=== PATIENT | female | born 1995 | race Two or more races ===

== ENCOUNTER → 2024-04-23 | Outpatient (CLI) | payer BC ==
[2024-04-23 09:22] LABS: Basophils # (auto) 0 10 ^3/uL (0-0.2); Basophils % (auto) 0.4 % (0.0-2.0); Eosinophils # (auto) 0.1 10 ^3/uL (0-0.8); Eosinophils % (auto) 1.1 % (0.0-7.0); Hematocrit 39.5 % (36.0-46.0); Hemoglobin 13.4 g/dL (12.2-16.2); Lymphocytes # (auto) 1.6 10 ^3/uL (0.4-5.4); Lymphocytes % (auto) 23.4 % (10.0-50.0); Mean Corpuscular Hemoglobin 29.6 pg (28.0-32.0); Mean Corpuscular Hgb Conc. 33.9 g/dL (32.0-36.0); Mean Corpuscular Volume 87.5 fL (80.0-100.0); Monocytes # (auto) 0.4 10 ^3/uL (0-1.3); Monocytes % (auto) 6.1 % (0.0-12.0); Neutrophils # (auto) 4.6 10 ^3/uL (1.6-8.6); Platelet Count (auto) 235 10^3/uL (140-450); Red Blood Cells 4.52 10^6/uL (4.0-5.20); Red Cell Distribution Width 13.4 % (11.8-14.3); White Blood Cell 6.7 10^3/uL (4.4-10.8)
[2024-04-23 11:05] LABS: Amphetamine Screen, Urine Neg (NEGATIVE); Barbiturate Scree,Urine Neg (NEGATIVE); Benzodiazephine Screen, Urine Neg (NEGATIVE); Cannabinoid Screen, Urine Neg (NEGATIVE); Cocaine Screen, Urine Neg (NEGATIVE); Opiate Scree,Urine Neg (NEGATIVE); Phencyclidine Screen, Urine Neg (NEGATIVE)
[2024-04-24 12:06] LABS: RPR Non Reactive (Non Reactive)
[2024-04-24 20:06] LABS: Chlamydia Trachomatis, NAA Negative (Negative); Neisseria gonorrhoeae, NAA Negative (Negative)
== END | disposition home or self-care (01) ==
LOC: LAB 08:42
PROVIDERS: ATTEND Obstetrics & Gynecology
DX: Z31.430 Encounter of female for testing for genetic disease carrier status for procreative management (principal); Z34.00 Encounter for supervision of normal first pregnancy, unspecified trimester; N39.0 Urinary tract infection, site not specified; Z20.01 Contact with and (suspected) exposure to intestinal infectious diseases due to Escherichia coli (E. coli)
CPT/HCPCS: 36415; 80307; 83036; 84144; 84702; 85025; 86592; 86703; 86762; 86850; 86900; 86901; 87086; 87340

== ENCOUNTER → 2024-08-11 | Outpatient (CLI) | payer BC | END | disposition home or self-care (01) | LOC: LAB 09:08 | PROVIDERS: ATTEND Obstetrics & Gynecology | DX: Z34.00 Encounter for supervision of normal first pregnancy, unspecified trimester (principal); Z3A.00 Weeks of gestation of pregnancy not specified | CPT/HCPCS: 36415; 82951; 83036 ==

== ENCOUNTER 2024-10-05 08:39 | Outpatient (CLI) | payer BC ==
[2024-10-05 09:10] LABS: Basophils # (auto) 0 10 ^3/uL (0-0.2); Basophils % (auto) 0.8 % (0.0-2.0); Eosinophils # (auto) 0 10 ^3/uL (0-0.8); Eosinophils % (auto) 0.7 % (0.0-7.0); Hemoglobin 12.3 g/dL (12.2-16.2); Lymphocytes # (auto) 1.5 10 ^3/uL (0.4-5.4); Lymphocytes % (auto) 24.7 % (10.0-50.0); Mean Corpuscular Hemoglobin 28.3 pg (28.0-32.0); Mean Corpuscular Hgb Conc. 33.3 g/dL (32.0-36.0); Mean Corpuscular Volume 84.9 fL (80.0-100.0); Monocytes # (auto) 0.5 10 ^3/uL (0-1.3); Monocytes % (auto) 8.2 % (0.0-12.0); Neutrophils # (auto) 4.1 10 ^3/uL (1.6-8.6); Neutrophils % (auto) 65.6 % (37.0-80.0); Nucleated Red Blood Cells % 0.1 %; Platelet Count (auto) 225 10^3/uL (140-450); Red Blood Cells 4.36 10^6/uL (4.0-5.20); Red Cell Distribution Width 13.9 % (11.8-14.3); White Blood Cell 6.2 10^3/uL (4.4-10.8)
[2024-10-07 01:07] LABS: Chlamydia Trachomatis, NAA Negative (Negative); Neisseria gonorrhoeae, NAA Negative (Negative)
[2024-10-08 14:06] LABS: Treponema Pallidum Ab LC Non Reactive (Non Reactive)
== END 2024-10-05 17:00 | disposition home or self-care (01) ==
LOC: LAB 08:39
PROVIDERS: ATTEND Obstetrics & Gynecology
DX: Z34.80 Encounter for supervision of other normal pregnancy, unspecified trimester (principal); Z3A.00 Weeks of gestation of pregnancy not specified; Z72.51 High risk heterosexual behavior
CPT/HCPCS: 36415; 85025; 86780

== ENCOUNTER 2024-11-05 05:43 | Observation (INO) | payer BC ==
[2024-11-05] MEDS ORDERED: PREN-96 PO (14:01)
--- NOTE | 2024-11-05 15:20 | DVHDS2 ---
Physician Discharge Progress N Final Diagnosis: postdates 40wks Operations or Procedures: Operations or Procedures nst reviewed reactive,sono Other Interventions Other Interventions refuses induction jessica is low normal but pt doesnt want to get induced understands risks and compl of low jessica possib of iufd ,advised pt to return tmw for jessica check Condition on Discharge: Good Disposition: Home Discharge Instructions: Activity: No Restrictions, As Tolerated Medications: na Follow Up Care: Specialist: 1d Discharge Statement: "Patient was advised to return to the ER or call 911 if any headaches, dizziness, shortness of breath, chest pain, abdominal pain, bleeding, fevers, or worsening of medical condition. Patient was counseled about treatment plan, medications, possible side effects, patientverbalized understanding. All questions were answered to the best of my ability. This discharge took greater then 30 minutes in planning, reviewing documentation, counseling the patient, and discussing with other team members." Visit Coding OBGYN Date of Service: Nov 05, 2024 Billing Provider: PEACE HOWARD DO CHAIN CARRIER Common Visit Codes: [id number] OBS CARE (HIGH) CHAIN CARRIER Procedure Codes: 06278-41- NON-STRESS TEST PEACE HOWARD DO Nov 05, 2024 15:20
--- NOTE | 2024-11-05 16:35 | DVH ---
BIOPHYSICAL PROFILE HISTORY: Term Gestation TECHNIQUE: Multiple transabdominal real-time grayscale sonographic images through the gravid uterus of the fetus with duplex Doppler color flow and M-mode spectral analysis FINDINGS: BIOPHYSICAL PROFILE: breathing score: 2 movement score: 2 tone score: 2 Quantitative BRENDA score: 2 (BRENDA: 7.1 Cm.) Total score: 8 The cervix is not well-visualized Single live fetus in cephalic presentation. heart rate 150 beats per minute. Grade 3 anterior placenta without previa or abruption IMPRESSION: Biophysical profile score: 8
== END 2024-11-05 15:38 | disposition home or self-care (01) ==
LOC: LDRP 13:55
PROVIDERS: ADMIT Obstetrics & Gynecology; ATTEND Obstetrics & Gynecology
DX: O48.0 Post-term pregnancy (principal); Z3A.40 40 weeks gestation of pregnancy; Z79.899 Other long term (current) drug therapy
CPT/HCPCS: 76818; 81002; 94760; G0378; 59025; 76819

== ENCOUNTER 2024-11-06 08:59 | Observation (INO) | payer BC ==
[~2024-11-06 08:59] MED LIST: PREN-96 PO
--- NOTE | 2024-11-06 13:32 | DVHDS2 ---
Physician Discharge Progress N Final Diagnosis: IUP 40+ wk, encounter for NST/BERNDA Operations or Procedures: Operations or Procedures NST/BPP BRENDA ok NOT in labor Condition on Discharge: Stable Disposition: Home Discharge Instructions: Diet: Regular Activity: Light activity Follow Up/Referral: as scheduled Delivery plan per Dr Vallejo Medications: na Follow Up Care: Discharge Statement: "Patient was advised to return to the ER or call 911 if any headaches, dizziness, shortness of breath, chest pain, abdominal pain, bleeding, fevers, or worsening of medical condition. Patient was counseled about treatment plan, medications, possible side effects, patientverbalized understanding. All questions were answered to the best of my ability. This discharge took greater then 30 minutes in planning, reviewing documentation, counseling the patient, and discussing with other team members." Visit Coding OBGYN Date of Service: Nov 06, 2024 Billing Provider: ROMAN DALEY DO ROADMASTER Common Visit Codes: 00502-OES/OBS SAME DATE (MOD) ROMAN DALEY DO Nov 06, 2024 13:32
--- NOTE | 2024-11-06 13:42 | DVH ---
Limited Ob ultrasound HISTORY: BRENDA CHECK TECHNIQUE: Multiple transabdominal real-time grayscale sonographic images through the gravid uterus of the fetus with duplex Doppler color flow and M-mode spectral analysis FINDINGS: Single intrauterine fetus with cephalic presentation. heart rate 147 beats per minute. Anterior grade 3 placenta without previa or abruption BRENDA 9 cm IMPRESSION: 1. The BRENDA is currently 9 cm
== END 2024-11-06 14:01 | disposition home or self-care (01) ==
LOC: LDRP 12:35
PROVIDERS: ADMIT Obstetrics & Gynecology; ATTEND Obstetrics & Gynecology
DX: O48.0 Post-term pregnancy (principal); Z98.890 Other specified postprocedural states; Z79.899 Other long term (current) drug therapy; Z3A.40 40 weeks gestation of pregnancy
CPT/HCPCS: 59025; 76815; 81002; 94760; G0378

== ENCOUNTER 2024-11-07 00:15 | Observation (INO) | payer BC ==
--- NOTE | 2024-11-07 09:00 | DVHDS2 ---
Physician Discharge Progress N Final Diagnosis: Term IUP 40+ wk, encounter for Antepartum testing Operations or Procedures: Operations or Procedures NST/BPP/BRENDA BRENDA 7.8cm MVP > 3cm (normal fluid) NST reactive NOT in labor Condition on Discharge: Stable Disposition: Home Discharge Instructions: Diet: Regular Activity: No Restrictions, As Tolerated Follow Up/Referral: as scheduled Medications: N/a Follow Up Care: Discharge Statement: "Patient was advised to return to the ER or call 911 if any headaches, dizziness, shortness of breath, chest pain, abdominal pain, bleeding, fevers, or worsening of medical condition. Patient was counseled about treatment plan, medications, possible side effects, patientverbalized understanding. All questions were answered to the best of my ability. This discharge took greater then 30 minutes in planning, reviewing documentation, counseling the patient, and discussing with other team members." Visit Coding OBGYN Date of Service: Nov 07, 2024 Billing Provider: ROMAN DALEY DO CATH LABORATORY TECHNICIAN Common Visit Codes: 80146-FWJ/OBS SAME DATE (MOD) ROMAN DALEY DO Nov 07, 2024 09:00
--- NOTE | 2024-11-07 09:00 | DVH ---
BIOPHYSICAL PROFILE HISTORY: term TECHNIQUE: Multiple transabdominal real-time grayscale sonographic images through the gravid uterus o f the fetus with duplex doppler color flow and M-mode spectral analysis FINDINGS: BIOPHYSICAL PROFILE: breathing score: 2 movement score: 2 tone score: 2 Quantitative BRENDA score: 2 (BRENDA: 7.8 cm.) Total score: 8/8 Single live fetus in cephalic presentation. heart rate 137 beats per minute. Anterior placenta without previa or abruption Biophysical profile score 8/8 corresponding to an ELIESER of 11/05/24 IMPRESSION: Biophysical profile score: 8/8
== END 2024-11-07 09:12 | disposition home or self-care (01) ==
LOC: LDRP 07:52
PROVIDERS: ADMIT Obstetrics & Gynecology; ATTEND Obstetrics & Gynecology
DX: O48.0 Post-term pregnancy (principal); Z3A.40 40 weeks gestation of pregnancy; Z79.899 Other long term (current) drug therapy
CPT/HCPCS: 76818; 81002; G0378; 59025; 76819

== ENCOUNTER 2024-11-09 00:57 | Observation (INO) | payer BC ==
--- NOTE | 2024-11-09 15:49 | DVH ---
BIOPHYSICAL PROFILE HISTORY: Term Gestation TECHNIQUE: Multiple transabdominal real-time grayscale sonographic images through the gravid uterus o f the fetus with duplex doppler color flow and M-mode spectral analysis FINDINGS: BIOPHYSICAL PROFILE: breathing score: 2 movement score: 2 tone score: 2 Quantitative BRENDA score: 2 (BRENDA: 7.1 cm.) Total score: 8/8 Single live fetus in cephalic presentation. heart rate 142 beats per minute. Anterior placenta without previa or abruption Biophysical profile score 8/8 corresponding to an ELIESER of 11/05/24 IMPRESSION: Biophysical profile score: 8/8
--- NOTE | 2024-11-09 18:24 | DVHDS2 ---
Physician Discharge Progress N Final Diagnosis: testing for term Operations or Procedures: Operations or Procedures 29yo IUP@40.4wks, +FM, denies UCs/LOF/VB/SOLORIO/vision changes/RUQ pain. Pt requesting membrane sweep. VSS NST reactive SVE: FT/0/-3, unable to do membrane sweep FKC/PreE/labor precautions reviewed Pt declined IOL today. Dr. Vallejo scheduled her IOL for 11/13/24. Plan to f/u in 2 days for NST/BPP. Other Interventions Other Interventions [place] [address] Ph: [phone] DIAGNOSTIC IMAGING Diagnostic Imaging Report : [id number] Signed PATIENT: TRANG TRACY ACCT: [id number] UNIT: [id number] : 1995 LOC: [facility] ROOM / BED: TRIAGE1 / A AGE / SEX: 29 / F ADM STATUS: ADM IN SERVICE 1508 ORDERING PHYSICIAN: ENOCH FIGUEROA CNM PROCEDURE(s): BPP - BIOPHYSICAL PROFILE REASON: Term Gestation ORDER NUMBER(s): [id number], ACCESSION NUMBER(s): [id number] BIOPHYSICAL PROFILE HISTORY: Term Gestation TECHNIQUE: Multiple transabdominal real-time grayscale sonographic images through the gravid uterus of the fetus with duplex doppler color flow and M-mode spectral analysis FINDINGS: BIOPHYSICAL PROFILE: breathing score: 2 movement score: 2 tone score: 2 Quantitative BRENDA score: 2 (BRENDA: 7.1 cm.) Total score: 8/8 Single live fetus in cephalic presentation. heart rate 142 beats per minute. Anterior placenta without previa or abruption Biophysical profile score 8/8 corresponding to an ELIESER of 11/05/24 IMPRESSION: Biophysical profile score: 8/8 ATED BY: TOMER ELLIS MD DICTATED DATE/TIME: 11/09/241546 SIGNED BY: TOMER ELLIS MD SIGNED DATE/TIME: 11/09/241546 CC: Condition on Discharge: Stable Disposition: Home Discharge Instructions: Diet: Regular Activity: No Restrictions, As Tolerated Follow Up/Referral: as scheduled. Medications: see med list Follow Up Care: Specialist: f/u in 2 days Discharge Statement: "Patient was advised to return to the ER or call 911 if any headaches, dizziness, shortness of breath, chest pain, abdominal pain, bleeding, fevers, or worsening of medical condition. Patient was counseled about treatment plan, medications, possible side effects, patientverbalized understanding. All questions were answered to the best of my ability. This discharge took greater then 30 minutes in planning, reviewing documentation, counseling the patient, and discussing with other team members." Visit Coding OBGYN Date of Service: Nov 09, 2024 Billing Provider: ENOCH FIGUEROA CNM MITERING MACHINE OPERATOR Common Visit Codes: [id number] OBS CARE (HIGH) MITERING MACHINE OPERATOR Procedure Codes: 85437-66- NON-STRESS TEST ENOCH FIGUEROA CNM Nov 09, 2024 18:23
== END 2024-11-09 16:54 | disposition home or self-care (01) ==
LOC: LDRP 14:50 → UNDOADMOB 14:50 → LDRP 15:09 → UNDODISOB 16:54
PROVIDERS: ADMIT Obstetrics & Gynecology; ATTEND Obstetrics & Gynecology
DX: O48.0 Post-term pregnancy (principal); Z98.890 Other specified postprocedural states; Z79.899 Other long term (current) drug therapy; Z3A.40 40 weeks gestation of pregnancy
CPT/HCPCS: 76818; 81002; 94760; G0378; 59025; 76819

== ENCOUNTER 2024-11-11 06:14 | Observation (INO) | payer BC ==
--- NOTE | 2024-11-11 14:29 | DVH ---
OB ULTRASOUND, LIMITED CLINICAL INDICATION: Post term TECHNIQUE: Multiple grayscale ultrasound and M-mode images were obtained of the pelvis for evaluation of intrauterine . COMPARISON: US BIOPHYSICAL PROFILE on DOS: 11/09/24, US BIOPHYSICAL PROFILE on DOS: 11/07/24, US OBSTER ICAL LIMITED on DOS: 11/06/24 FINDINGS: A single living fetus is seen in cephalic presentation. Biophysical profile: 11/19 breathin movements: 2 tone: 2 Amniotic fluid volume: 2 Placenta: Anterior, grade 3. Amniotic fluid: Slightly low. BRENDA 7.4 cm heart rate: 153 beats/min. A complete anatomic survey was not performed on this exam. IMPRESSION: Biophysical profile: 11/19
--- NOTE | 2024-11-12 08:22 | DVHDS2 ---
Physician Discharge Progress N Final Diagnosis: post dates 40wks Operations or Procedures: Operations or Procedures nst reactive reviwed,sono Consultations: Consultations refuses induction Condition on Discharge: Good Disposition: Home Discharge Instructions: Diet: Regular Activity: No Restrictions, As Tolerated Medications: na Follow Up Care: Specialist: 2d Discharge Statement: "Patient was advised to return to the ER or call 911 if any headaches, dizziness, shortness of breath, chest pain, abdominal pain, bleeding, fevers, or worsening of medical condition. Patient was counseled about treatment plan, medications, possible side effects, patientverbalized understanding. All questions were answered to the best of my ability. This discharge took greater then 30 minutes in planning, reviewing documentation, counseling the patient, and discussing with other team members." Visit Coding OBGYN Date of Service: Nov 11, 2024 Billing Provider: PEACE HOWARD DO VULCAN CREWMEMBER Common Visit Codes: [id number] OBS CARE (HIGH) VULCAN CREWMEMBER Procedure Codes: 57283-83- NON-STRESS TEST PEACE HOWARD DO Nov 12, 2024 08:22
== END 2024-11-11 14:13 | disposition home or self-care (01) ==
LOC: LDRP 12:36 → UNDOADMOB 12:36 → LDRP 13:00
PROVIDERS: ADMIT Obstetrics & Gynecology; ATTEND Obstetrics & Gynecology
DX: O48.0 Post-term pregnancy (principal); Z3A.40 40 weeks gestation of pregnancy; Z79.899 Other long term (current) drug therapy
CPT/HCPCS: 76818; 81002; 94760; G0378; 59025; 76819

== ENCOUNTER 2024-11-13 08:04 | Inpatient (IN) | payer BC ==
[~2024-11-13] VITALS: Ht 162.6 cm; Wt 68.0 kg
[2024-11-13] MEDS ORDERED: NALBUPHINE HCL 10 MG/1ml INJECTION IV PRN (08:30)
[2024-11-13 08:50] LABS: Hematocrit 36.2 % (36.0-46.0); Hemoglobin 12.1 g/dL (12.2-16.2); Mean Corpuscular Hemoglobin 28.7 pg (28.0-32.0); Mean Corpuscular Volume 85.9 fL (80.0-100.0); Nucleated Red Blood Cells % 0.0 %
[2024-11-13 08:58] LABS: Urine Protein, UAD Negative (Negative)
[2024-11-13 09:07] LABS: INR 0.92 (0.9-1.15); Partial Thromboplastin Time 27.9 SEC (24.5-34.5); Prothrombin Time 9.8 sec (9.3-11.8)
[2024-11-13 09:16] LABS: Alanine Aminotransferase 18 U/L (7-40); Albumin 3.7 g/dL (3.2-4.8); Anion Gap 11 (5-15); BUN/Creatinine Ratio 9.9 (10.0-20.0); Calcium 9.0 mg/dL (8.7-10.4); Carbon Dioxide 21 mmol/L (20-31); Chloride 107 mmol/L (98-107); Glucose 101 mg/dL (74-106); Potassium 3.7 mmol/L (3.5-5.1); Sodium 139 mmol/L (136-145); Total Protein 6.0 g/dL (5.7-8.2)
[2024-11-13 09:17] LABS: Alkaline Phosphatase 186 U/L (46-116); Amphetamine Screen, Urine Neg (NEGATIVE); Barbiturate Scree,Urine Neg (NEGATIVE); Benzodiazephine Screen, Urine Neg (NEGATIVE); Bilirubin, Total 0.3 mg/dL (0.2-1.0); Blood Urea Nitrogen 8 mg/dL (9-23); Cannabinoid Screen, Urine Neg (NEGATIVE); Cocaine Screen, Urine Neg (NEGATIVE); Opiate Scree,Urine Neg (NEGATIVE); Phencyclidine Screen, Urine Neg (NEGATIVE)
--- NOTE | 2024-11-13 10:21 | DVH ---
LIMITED OB ULTRASOUND > 14 WKS: HISTORY: weight TECHNIQUE: Multiple real-time grayscale images of the gravid uterus with duplex Doppler color flow an d M-mode spectral analysis. FINDINGS: IUP single live fetus at 38 weeks 6 days based on composite averages of the BPD, head circumference, abdominal circumference and femur length. Measurements are as follows: BPD: 9.3 cm, 38 weeks 0 days Head circumference: 33.3 cm, 38 weeks 0 days AC: 37.5 cm, 41 weeks 3 days Femur length: 7.5 cm, 38 weeks 1 day Estimated weight 3929 grams heart rate 136 beats per minute BRENDA 6.3 cm Cervix not visualized Cephalic Presentation Anterior Placenta without previa or abruption. IMPRESSION: 1. IUP single live fetus at 38 weeks 6 days AUA corresponding to an ELIESER of 11/21/2024
[2024-11-13] MEDS: LACTATED RINGER'S 1,000 ML IV SCH (10:36)
[2024-11-13] MEDS: WITCH HAZEL-GLYCERIN PAD TOP PRN (10:36)
[2024-11-13] MEDS: DERMOPLAST 60ML BOTTLE TOP PRN (10:36)
[2024-11-13] MEDS: PHISODERM TOP SOLN 240ML BTL TOP PRN (10:37)
[2024-11-13] MEDS: LACT. RINGERS/OXYTOCIN 20UNITS 1,000 ML IV SCH (17:49)
[2024-11-13] MEDS ORDERED: CARBOPROST TROMETHAMINE 250 MCG/1ML VIAL IM PRN (18:15)
[2024-11-13] MEDS: ONDANSETRON HCL 4 MG/2 ML VIAL IV PRN (18:32)
[2024-11-13] MEDS: LIDOCAINE 2%HCL (LOCAL ANESTH.) INJ 20ML MDV ONE (20:59)
[2024-11-13] MEDS: LACT. RINGERS/OXYTOCIN 20UNITS 500 ML IV ONE ×2 (21:15)
[2024-11-13] MEDS: LIDOCAINE 2%HCL (LOCAL ANESTH.) INJ 20ML MDV IJ PRN ×2 (21:16→21:46)
--- NOTE | 2024-11-13 21:26 | DVHHP2 ---
OB CC & HPI Date Date of Admission: Nov 13, 2024 Patient Identification: : 1 Para: 0 EDC: Dec 06, 2024 EGA: 41+ Chief Complaints: Reason for admission: induction of labor (post dates) Indication for induction: post dates Other reason for admission: same Admission Nurse Assessment Rev: Yes History of Present Complaints some pnc Past Medical History Cardiac: No pertinent Hx Pulmonary: No pertinent Hx Central Nervous System: No pertinent Hx GI: No pertinent Hx Hemotology/Oncology: No pertinent Hx Hepatobiliary: No pertinent Hx Psychiatric: No pertinent Hx Musculoskeletal: No pertinent Hx Rheumotologic: No pertinent Hx Infectious Disease: No peritnent Hx ENT: No pertinent Hx Renal/: No pertinent Hx Endocrine: No pertinent Hx Dermatology: No pertinent Hx Past Surgical History: No pertinent Hx OB History OB History Care: Good Care Ultrasounds: Normal mid trimester US Obstetrical Complications: None Medical Complications: None Allergies: Coded Allergies: NO KNOWN ALLERGIES (Unverified , 11/13/24) Home Meds Reported Medications Vit W/ Ferrous Fumara ( One Daily) Daily Tab, 1 TAB PO DAILY, #90 TAB 3 Refills 11/05/24 Current Medications Current Medications Medications (Trade) Dose Ordered Sig/Shanna Route PRN Reason Start Time Stop Time Status Last Admin Lactated Ringer's 1,000 ml @ 125 mls/hr Q8H IV 11/13/24 08:30 11/13/24 10:36 Nalbuphine HCl (Nubain) 10 mg Q4HP PRN IV MODERATE PAIN (4-6 PAIN SCALE) 11/13/24 08:30 Witch Inez (Tucks) 1 pad PRN PRN TOP PERINEAL AREA DISCOMFORT 11/13/24 08:30 11/13/24 10:36 Sodium Lauryl Sulfate (Phisoderm) 240 ml PRN PRN TOP PERINEAL AREA DISCOMFORT 11/13/24 08:30 11/13/24 10:37 Benzocaine (Dermoplast) 1 applic PRN PRN TOP PERINEAL AREA DISCOMFORT 11/13/24 08:30 11/13/24 10:36 Lidocaine HCl (Xylocaine) 20 ml ONCE PRN IJ PERINEAL AREA DISCOMFORT 11/13/24 08:30 Ondansetron HCl (Zofran) 4 mg Q4HPRN PRN IV NAUSEA / VOMITING 11/13/24 09:30 82/25 18:32 Misoprostol (Cytotec) 50 mcg Q4HPRN PRN PO CERVICAL RIPENING 11/13/24 09:45 11/13/24 10:45 Oxytocin 1,000 ml @ 6 ml/hr Q24H IV 11/13/24 15:15 11/13/24 17:49 Carboprost Tromethamine (Hemabate) 250 mcg Q20M PRN IM POST HEMORRHAGE 11/13/24 18:15 11/13/24 18:36 DC Methylergonovine Maleate (Methergine) 0.2 mg Q8HP PRN IM POST HEMORRHAGE 11/13/24 18:15 11/15/24 18:14 Misoprostol (Cytotec) 200 mcg ONCE PRN [place] BLEED/HEMORRHAGE 11/13/24 18:15 Misoprostol (Cytotec) 600 mcg ONCE PRN [place] BLEED/HEMORRHAGE 11/13/24 18:15 Diphenoxylate HCl/ Atropine (Lomotil Tablet) 5 mg Q12HR PO 11/13/24 22:00 Family & Social History Family/Social History Blood Type: A+ Rubella: immune RPR/VDRL: Negative GBS Status: Negative HBsAG: Negative Review of Systems Constitutional: No symptom reported Ears, Nose, & Throat: No symptom reported Eyes: No symptom reported Pulmonary/Respiratory: No symptom reported Cardiovascular: No symptom reported Gastrointestinal: No symptom reported Genitourinary: No symptom reported Musculoskeletal: No symptom reported Skin: No symptom reported Psychiatric: No symptom reported Endocrine: No symptom reported Hemotologic/Lymphatic: No symptom reported OB Admission Exam Physical Exam HEENT: TMs Normal, Fontanelles Normal, Nasal Mucosa Normal, Eyes non-injected, Oropharynx Normal, PERRLA, Moist Membranes, EOMI Heart: Rhythm Normal Lungs: Clear Abdomen: Non tender Extremities: Normal Reflexes: Normal Cervical Dilatation: 1cm Effacement: 50% Station: -3 Membranes: Intact Amniotic Fluid: Clear Heart Rate: 130's Accelerations: Accelerations Present Decelerations: No Decelerations Short Term Variability: Present Occupational Therapy Supervisor Variability: Average (6-25) Contractions on Admission: 6-10 Minutes Apart Intensity: Mild OB Plan Plan Admitting Diagnosis: induction of labor Post date Plan: Induction (Cytotec) YOSELIN GARCIA DO Nov 13, 2024 21:26
--- NOTE | 2024-11-13 21:31 | LDN2 ---
Labor and Delivery Note Date 11/13/24 Age 29 1 Para 0 AB 0 EDC 11/05/2024 EGA 41+ Diagnosis post date induction Vaginal Delivery: VTX Vacuum Assisted: No Placenta: Spontaneous Sex: Female Weight pnd Apgars 8/9 Nuchal Cord Transected: Yes (loose x1 ) Amniotic Fluid: Clear Anesthesia none Episiotomy: No Extension: Yes (2nd degee midline posterior vag/ perineal , rectal exam intact great tone, 1st degree bilateral anterior vaginal) Labs Laboratory Tests 04/23/24 08:55: Hepatitis B Surface Antigen Negative, HIV (1&2) Antibody Negative, Rubella Antibody Positive Blood Bank 11/13/24 08:25: Blood Type A POSITIVE Complications none Conditions stable Home Assessment Nurse none needed or present Visit Coding OBGYN Date of Service: Nov 13, 2024 Billing Provider: YOSELIN GARCIA DO SALESPERSON [employer]IAL [employer]OTS Common Visit Codes: 75754-ZQR/OBS SAME DATE (HIGH) SALESPERSON B[employer]IAL PLOTS Procedure Codes: 76559-YQK DEL INCLUDING YOSELIN GARCIA DO Nov 13, 2024 21:31
[2024-11-13] MEDS: DIPHENOXYLATE W/ATROPINE 2.5 MG TAB PO SCH (22:00)
[2024-11-13] MEDS: IBUPROFEN 600 MG TAB PO PRN (22:41)
[2024-11-13 23:30] VITALS: BP 113/66; PULSE 90; RESP 18; TEMP 98.3; O2SAT 98
[2024-11-14] MEDS: METHYLERGONOVINE MALEATE 0.2 MG/ML AMP IM PRN (01:24)
[2024-11-14 02:51] VITALS: BP 106/62; PULSE 86; RESP 18; TEMP 98.3; O2SAT 98
[2024-11-14 07:00] VITALS: BP 101/62; PULSE 72; RESP 18; TEMP 98.1; O2SAT 97
[2024-11-14 11:00] VITALS: BP 101/65; PULSE 80; RESP 15; TEMP 97.9; O2SAT 98
[2024-11-14 15:20] VITALS: BP 122/73; PULSE 86; RESP 16; TEMP 98.8; O2SAT 98
[2024-11-14 18:34] VITALS: BP 110/67; PULSE 81; RESP 18; TEMP 98.2; O2SAT 98
[2024-11-14] MEDS: DOCUSATE SOD 100 MG CAP PO SCH (21:27)
[2024-11-14] MEDS: ACETAMINOPHEN 325 MG TAB PO PRN (21:28)
[2024-11-14 23:30] VITALS: BP 106/62; PULSE 86; RESP 18; TEMP 98.1; O2SAT 98
[2024-11-15 03:10] VITALS: BP 112/64; PULSE 74; RESP 18; TEMP 98.2; O2SAT 98
[2024-11-15 06:30] VITALS: BP 97/59; PULSE 78; RESP 16; TEMP 98.2; O2SAT 97
--- NOTE | 2024-11-16 05:54 | DVHPN2 ---
Chief Complaints Patient reports: No new complaints (Retrospective note 11/14/2024), Feels better Nursing reports: No new complaints, No abdominal pain, No chest pain, No dizziness, No cough Objective Vitals Vital Signs Date Time Temp Pulse Resp B/P (MAP) Pulse Ox O2 Delivery O2 Flow Rate FiO2 11/15/24 06:30 98.2 78 16 97/59 (72) 97 98.2 11/15/24 06:30 Room Air Medications none Comment minimal lochia General: Normal ENT: Normal Neck: Normal Lungs: Normal Cardiovascular: Normal Abdominal: Normal Musculoskeletal: Normal Extremities: Normal Skin: Normal Neurological: Normal Studies Laboratory Tests 11/13/24 08:25 Test 11/13/24 08:25 Range/Units Serum Glucose 101 74-106 mg/dL Ass/Plan Assessment PPD #1 stable improved Plan advance care YOSELIN GARCIA DO Nov 16, 2024 05:54
--- NOTE | 2024-11-16 05:57 | DVHDS2 ---
Discharge Summary Date of Admission Nov 13, 2024 at 08:04 Date of Discharge: Nov 15, 2024 Admitting Diagnosis induction Wounds: 2nd posterior Labs/Diagnostic Data: Laboratory Results Test 11/13/24 08:25 White Blood Count 7.0 10^3/uL (4.4-10.8) Red Blood Count 4.21 10^6/uL (4.0-5.20) Hemoglobin 12.1 g/dL (12.2-16.2) Hematocrit 36.2 % (36.0-46.0) Mean Corpuscular Volume 85.9 fL (80.0-100.0) Mean Corpuscular Hemoglobin 28.7 pg (28.0-32.0) Mean Corpuscular Hemoglobin Concent 33.4 g/dL (32.0-36.0) Red Cell Distribution Width 16.0 % (11.8-14.3) Platelet Count 186 10^3/uL (140-450) Mean Platelet Volume 8.3 fL (6.9-10.8) Neutrophils (%) (Auto) 66.6 % (37.0-80.0) Lymphocytes (%) (Auto) 25.1 % (10.0-50.0) Monocytes (%) (Auto) 7.1 % (0.0-12.0) Eosinophils (%) (Auto) 0.7 % (0.0-7.0) Basophils (%) (Auto) 0.5 % (0.0-2.0) Neutrophils # (Auto) 4.6 10 ^3/uL (1.6-8.6) Lymphocytes # (Auto) 1.7 10 ^3/uL (0.4-5.4) Monocytes # (Auto) 0.5 10 ^3/uL (0-1.3) Eosinophils # (Auto) 0 10 ^3/uL (0-0.8) Basophils # (Auto) 0 10 ^3/uL (0-0.2) Nucleated Red Blood Cells 0.0 % Prothrombin Time 9.8 sec (9.3-11.8) Prothrombin Time INR 0.92 (0.9-1.15) Activated Partial Thromboplast Time 27.9 SEC (24.5-34.5) Urine Color Light-yellow (Yellow) Urine Clarity Clear (Clear) Urine pH 7.0 (5.0-9.0) Urine Specific [place] 1.013 (1.001-1.035) Urine Protein Negative (Negative) Urine Ketones Negative (Negative) Urine Blood Negative /uL (Negative) Urine Nitrite Negative (Negative) Urine Bilirubin Negative (Negative) Urine Urobilinogen Normal mg/dL (Negative) Urine Leukocyte Esterase Negative /uL (Negative) Urine RBC None seen /hpf (0 - 4) Urine Microscopic WBC 1 /HPF (0-5) Urine Squamous Epithelial Cells Few /hpf (<5) Urine Bacteria None seen /hpf (None Seen) Urine Glucose Normal mg/dL (Normal) Sodium Level 139 mmol/L (136-145) Potassium Level 3.7 mmol/L (3.5-5.1) Chloride Level 107 mmol/L (98-107) Carbon Dioxide Level 21 mmol/L (20-31) Anion Gap 11 (5-15) Blood Urea Nitrogen 8 mg/dL (9-23) Creatinine 0.81 mg/dL (0.550-1.02) Glomerular Filtration Rate Calc 101 mL/min (>90) BUN/Creatinine Ratio 9.9 (10.0-20.0) Serum Glucose 101 mg/dL (74-106) Calcium Level 9.0 mg/dL (8.7-10.4) Total Bilirubin 0.3 mg/dL (0.2-1.0) Aspartate Amino Transferase (AST) 20 U/L (13-40) Alanine Aminotransferase (ALT) 18 U/L (7-40) Alkaline Phosphatase 186 U/L (46-116) Total Protein 6.0 g/dL (5.7-8.2) Albumin 3.7 g/dL (3.2-4.8) Urine Opiates Screen Neg (NEGATIVE) Urine Fentanyl Screen Neg (NEGATIVE) Urine Barbiturates Screen Neg (NEGATIVE) Urine Phencyclidine Screen Neg (NEGATIVE) Urine Amphetamines Screen Neg (NEGATIVE) Urine Benzodiazepines Screen Neg (NEGATIVE) Urine Cocaine Screen Neg (NEGATIVE) Urine Cannabinoids Screen Neg (NEGATIVE) Treponema pallidum Antibody Non-reactive (Negative) Hepatitis C Antibody Negative (Negative) Other Laboratory Tests 11/13/24 08:25 Brief Hx & Hospital Course: no issues Operations or Procedures none Condition at Discharge: Good Final Diagnosis/Problems List PP Discharge Disposition: Home Discharge Instruct/Medications Diet: Regular Activity: Light activity (pelvic rest 8 weeks) Follow Up/Referral: 2 weeks or prn primary OB MD/DO Medications: tylenol prn Scheduled Vit W/ Ferrous Fumara ( One Daily), 1 TAB PO DAILY, (Reported) Discharge Statement: "Patient was advised to return to the ER or call 911 if any headaches, dizziness, shortness of breath, chest pain, abdominal pain, bleeding, fevers, or worsening of medical condition. Patient was counseled about treatment plan, medications, possible side effects, patientverbalized understanding. All questions were answered to the best of my ability. This discharge took greater then 30 minutes in planning, reviewing documentation, counseling the patient, and discussing with other team members." ASSESSMENT ASSESSMENT Assessment PP Visit Coding OBGYN Date of Service: Nov 15, 2024 Billing Provider: YOSELIN GARCIA DO BOAT OFFICER Common Visit Codes: 85638-ASQ/OBS SAME DATE (LOW), 88194-VWS/OBS SAME DATE (MOD), 50048-VMI/OBS SAME DATE (HIGH) BOAT OFFICER Procedure Codes: 69870-NWG DEL INCLUDING YOSELIN GARCIA DO Nov 16, 2024 05:57
== END 2024-11-15 10:25 | disposition home or self-care (01) | DRG 807 ==
LOC: LDRP 08:04 → OBSVTOIN 08:04 → LDRP 23:38
PROVIDERS: ADMIT Obstetrics & Gynecology; ATTEND Obstetrics & Gynecology
PROC: 10E0XZZ Delivery of Products of Conception, External Approach (ICD-10-PCS; principal; 2024-11-13)
PROC: 0KQM0ZZ Repair Perineum Muscle, Open Approach (ICD-10-PCS; 2024-11-13)
PROC: 3E0DXGC Introduction of Other Therapeutic Substance into Mouth and Pharynx, External Approach (ICD-10-PCS; 2024-11-13)
PROC: 3E0R3BZ Introduction of Anesthetic Agent into Spinal Canal, Percutaneous Approach (ICD-10-PCS; 2024-11-13)
PROC: 00HU33Z Insertion of Infusion Device into Spinal Canal, Percutaneous Approach (ICD-10-PCS; 2024-11-13)
DX: O48.0 Post-term pregnancy (principal); Z37.0 Single live birth; O70.1 Second degree perineal laceration during delivery; Z3A.41 41 weeks gestation of pregnancy; O69.81X0 Labor and delivery complicated by cord around neck, without compression, not applicable or unspecified
CPT/HCPCS: 36415; 59025; 59409; 76805; 80053; 80307; 81001; 85025; 85610; 85730; 86780; 86803; 86850; 86900; 86901; 94760; 94762; 96360; 96361; 96365; G0378; J2405; J2590